=== PATIENT | female | born 2000 | race Caucasian/White ===

== ENCOUNTER → 2020-02-10 | Outpatient (REF) | payer OTHER | LOC: M LAB REF 19:21 | PROVIDERS: ATTEND Physician Assistant | DX: R22.41 Localized swelling, mass and lump, right lower limb (principal) ==

== ENCOUNTER → 2020-03-15 | Outpatient (REF) | payer OTHER | LOC: M LAB REF 17:05 | PROVIDERS: ATTEND Family Medicine | DX: R10.2 Pelvic and perineal pain (principal) ==

== ENCOUNTER → 2020-04-18 | Outpatient (CLI) | payer OTHER ==
--- NOTE | 2020-04-19 08:47 | REP ---
INDICATION: W/ INCONCLUSIVE VIABILITY COMPARISON: None. TECHNIQUE: Transabdominal obstetrical ultrasound with color Doppler evaluation. FINDINGS: Single live early intrauterine is appreciated. Gestational sac with yolk sac and pole identified. [place]-rump length of 22 mm corresponds to 8 weeks 6 days gestational age with estimated date of delivery 11/22/2020. heart rate equals 171 beats per minute. No gross abnormalities are identified. IMPRESSION: Single live early intrauterine at 8 weeks 6 days gestational age. Complete anatomical assessment should be performed and 19-20 weeks. <Electronically signed by Aryan Rosa > 04/19/20 [id number]
== END ==
LOC: M RAD 10:03
PROVIDERS: ATTEND Obstetrics & Gynecology
DX: O36.80X0 Pregnancy with inconclusive fetal viability, not applicable or unspecified (principal); Z3A.08 8 weeks gestation of pregnancy

== ENCOUNTER → 2020-05-29 | Outpatient (REF) | payer OTHER ==
[2020-05-31 16:08] LABS: HEMOGLOBIN A2 2.2 % (1.8-3.2); HEMOGLOBIN F (FETAL) 1.8 % (0.0-2.0); HGB SOLUBILITY Negative (Negative)
== END ==
LOC: M LAB REF 12:45
PROVIDERS: ATTEND Advanced Practice Midwife
DX: Z34.02 Encounter for supervision of normal first pregnancy, second trimester (principal)

== ENCOUNTER → 2020-07-11 | Outpatient (CLI) | payer OTHER ==
--- NOTE | 2020-07-11 13:19 | REP ---
INDICATION: ANATOMY COMPARISON: None. TECHNIQUE: Transabdominal obstetrical ultrasound with color Doppler evaluation. FINDINGS: Examination demonstrates a single live intrauterine in cephalic presentation. motion is identified by technologist. Placenta is noted anterior and grade 1 without evidence for placenta previa or abruption. Amniotic fluid volume is normal. Cervix measures 4.1 cm in length and appears closed.. Gestational age by LMP twenty weeks 6 days with KAILYN 11/22/2020. Gestational age by current measurements 21 weeks 3 days with KAILYN 11/18/2020. FHR equals 146 beats per minute. BPD: 5.3 cm 22 weeks 1 day HC: 19.1 cm 21 weeks 2 days AC: 15.7 cm 20 weeks 6 days FL: 3.7 cm 21 weeks 4 days HL: 3.3 cm 21 weeks 1 day HC/AC: 1.22 Estimated weight 409 grams (80thpercentile). Anatomical assessment demonstrates normal structures including choroid plexus, cavum, cerebellum/posterior fossa, facial features, lungs, four-chamber heart/ventricular outflow tracts, diaphragm, stomach, cord insertion/three-vessel cord, kidneys/bladder, spine, and extremities. IMPRESSION: 1. Single live intrauterine in cephalic presentation demonstrating appropriate interval growth. 2. Subtle irregular contour to the cranium may be secondary to positioning and crowding and less likely true congenital abnormality. Consider follow-up examination as necessary. Remainder of the anatomical assessment is complete and normal. <Electronically signed by Aryan Rosa > 07/11/20 [id number]
== END ==
LOC: M WHC 08:59
PROVIDERS: ATTEND Advanced Practice Midwife
DX: Z36.9 Encounter for antenatal screening, unspecified (principal); Z3A.21 21 weeks gestation of pregnancy

== ENCOUNTER → 2020-08-09 | Outpatient (CLI) | payer OTHER ==
[~2020-08-09] MED LIST: ACET-861 PO; NOXI1TAB PO; PRENTAB9 PO
--- NOTE | 2020-08-09 14:18 | REP ---
INDICATION: F/U ANATOMY COMPARISON: 07/11/2020 TECHNIQUE: Transabdominal obstetrical ultrasound with color Doppler evaluation. FINDINGS: Examination demonstrates a single live intrauterine in breech presentation. motion is identified by technologist. Placenta is noted anterior and grade 1 without evidence for placenta previa or abruption. Amniotic fluid volume is normal. Cervix measures 4.2 cm in length and appears closed.. Gestational age by EDC 24 weeks 5 days with KAILYN 11/24/2020. Gestational age by current measurements 25 weeks 6 days with KAILYN 11/16/2020. Gestational age by 1st ultrasound 25 weeks 0 days with KAILYN 11/22/2020 FHR equals 146 beats per minute. Estimated weight 824 grams. Cranium again has a mild "lemon shaped" appearance which is nonspecific. Mild renal pelviectasis is within normal limits for age. Asymmetric appearance to the lateral ventricles assumed to be positional. No further significant abnormalities are identified. IMPRESSION: Single live intrauterine in breech presentation. Consider follow-up ultrasound examination to the above-mentioned nonspecific findings. <Electronically signed by Aryan Rosa > 08/09/20 [id number]
== END ==
LOC: M WHC 11:00
PROVIDERS: ATTEND Advanced Practice Midwife
DX: Z36.9 Encounter for antenatal screening, unspecified (principal); Z3A.25 25 weeks gestation of pregnancy

== ENCOUNTER 2020-08-11 00:55 | Emergency (ER) | payer OTHER ==
[~2020-08-11] VITALS: Ht 157.5 cm; Wt 90.9 kg
[2020-08-11] MEDS ORDERED: ACET-861 PO (01:02)
[2020-08-11] MEDS ORDERED: PRENTAB9 PO (01:02)
[2020-08-11] MEDS ORDERED: NOXI1TAB PO (01:02)
[2020-08-11] MEDS ORDERED: GI COCKTAIL 50ML BTL(HYOSCYAMINE/MAALOX/LIDOCAINE VISCOUS)(1:3:1) PO ONE (01:30)
[2020-08-11] MEDS ORDERED: NS 1,000 ML IV ONE (01:30)
[2020-08-11] MEDS ORDERED: ACETAMINOPHEN TAB 650MG DOSE (2X325MG) PO ONE (01:30)
[2020-08-11 02:10] LABS: BASO # 0.1 10^3/uL (0.0-0.2); BASO % 0.6 % (0.0-1.0); EOS # 0.5 10^3/uL (0.0-0.5); EOS % 3.3 % (0.0-3.0); HEMATOCRIT 33.4 % (36.0-47.0); HEMOGLOBIN 11.2 g/dl (12.0-15.5); LYMPH # 2.3 10^3/uL (1.5-5.0); LYMPH % 16.2 % (24.0-44.0); MEAN CORPUSCULAR HEMOGLOBIN 28.9 pg (27.0-33.0); MEAN CORPUSCULAR HGB CONC 33.5 g/dl (32.0-36.5); MEAN CORPUSCULAR VOLUME 86.1 fl (80.0-96.0); MONO # 1.2 10^3/uL (0.0-0.8); MONO % 8.3 % (2.0-8.0); NEUTROPHILS # 9.9 10^3/uL (1.5-8.5); NEUTROPHILS % 69.4 % (36.0-66.0); PLATELET COUNT, AUTOMATED 204 10^3/uL (150-450); RED BLOOD COUNT 3.88 10^6/uL (4.00-5.40); WHITE BLOOD COUNT 14.3 10^3/uL (4.0-10.0)
[2020-08-11 02:48] LABS: ALBUMIN 2.9 GM/DL (3.2-5.2); ALT/SGPT 22 U/L (12-78); BILIRUBIN,DIRECT < 0.1 MG/DL (0.0-0.2); BLOOD UREA NITROGEN 8 MG/DL (7-18); CALCIUM LEVEL 8.9 MG/DL (8.5-10.1); CARBON DIOXIDE LEVEL 27 MEQ/L (21-32); CHLORIDE LEVEL 104 MEQ/L (98-107); CREATININE FOR GFR 0.54 MG/DL (0.55-1.30); GLOMERULAR FILTRATION RATE > 60.0 (>60); GLUCOSE, FASTING 84 MG/DL (70-100); MAGNESIUM LEVEL 1.5 MG/DL (1.8-2.4); POTASSIUM SERUM 3.5 MEQ/L (3.5-5.1); SODIUM LEVEL 137 MEQ/L (136-145); TOTAL PROTEIN 6.2 GM/DL (6.4-8.2); URIC ACID 3.4 MG/DL (2.6-6.0)
[2020-08-11 03:07] LABS: APPEARANCE, URINE CLEAR (CLEAR); BACTERIA, URINE AUTO 3+ (NEGATIVE); BILIRUBIN, URINE AUTO NEGATIVE (NEGATIVE); BLOOD, URINE BLOOD NEGATIVE (NEGATIVE); COLOR, URINE STRAW (YELLOW); GLUCOSE, URINE (UA) AUTO NEGATIVE (NEGATIVE); KETONE, URINE AUTO NEGATIVE (NEGATIVE); LEUKOCYTE ESTERASE, URINE AUTO NEGATIVE (NEGATIVE); NITRITE, URINE AUTO NEGATIVE (NEGATIVE); PROTEIN, URINE AUTO NEGATIVE (NEGATIVE); RBC, URINE AUTO 0 /HPF (0-3); SPECIFIC GRAVITY URINE AUTO 1.005 (1.002-1.035); SQUAMOUS EPITHELIAL CELL UR AU 1 /HPF (0-6); UROBILINOGEN, URINE AUTO 0.2 mg/dL (0.0-2.0); WBC, URINE AUTO 2 /HPF (0-3)
[2020-08-11 03:27] LABS: BILIRUBIN,TOTAL < 0.1 MG/DL (0.2-1.0)
[2020-08-11] MEDS ORDERED: MAGNESIUM OXIDE 400MG TAB (MAG-OX) PO ONE (04:00)
[2020-08-11 04:12] VITALS: BP 139/71
--- NOTE | 2020-08-11 06:18 | ECGEPIP ---
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
== END 2020-08-11 04:18 | disposition home or self-care (01) ==
LOC: M ED 00:55
DX: O99.412 Diseases of the circulatory system complicating pregnancy, second trimester (principal); R07.9 Chest pain, unspecified; O99.352 Diseases of the nervous system complicating pregnancy, second trimester; R51.9 Headache, unspecified; Z3A.25 25 weeks gestation of pregnancy

== ENCOUNTER → 2020-08-27 | Outpatient (CLI) | payer OTHER ==
[2020-08-27 12:02] LABS: HEMATOCRIT 35.2 % (36.0-47.0); HEMOGLOBIN 11.8 g/dl (12.0-15.5); MEAN CORPUSCULAR HEMOGLOBIN 29.5 pg (27.0-33.0); MEAN CORPUSCULAR HGB CONC 33.5 g/dl (32.0-36.5); PLATELET COUNT, AUTOMATED 210 10^3/uL (150-450); WHITE BLOOD COUNT 14.3 10^3/uL (4.0-10.0)
== END ==
LOC: M LAB 10:22
PROVIDERS: ATTEND Advanced Practice Midwife
DX: Z34.82 Encounter for supervision of other normal pregnancy, second trimester (principal); Z3A.00 Weeks of gestation of pregnancy not specified

== ENCOUNTER → 2020-10-02 | Outpatient (REF) | payer OTHER | LOC: M LAB REF 16:14 | PROVIDERS: ATTEND Advanced Practice Midwife | DX: Z36.89 Encounter for other specified antenatal screening (principal) ==

== ENCOUNTER 2020-10-27 16:49 | Emergency (ER) | payer OTHER ==
[~2020-10-27] VITALS: Ht 157.5 cm; Wt 102.3 kg
[2020-10-27 16:50] VITALS: BP 156/98
[2020-10-27] MEDS ORDERED: AUGM0.05 TOP (17:22)
[2020-10-27] MEDS ORDERED: NOXI1TAB PO (19:22)
[2020-10-27] MEDS ORDERED: MULTTAB20 PO (19:22)
[2020-10-28] MEDS ORDERED: PRED20TA PO (04:49)
== END 2020-10-27 17:42 | disposition home or self-care (01) ==
LOC: M ED 16:49
DX: O26.86 Pruritic urticarial papules and plaques of pregnancy (PUPPP) (principal); Z3A.36 36 weeks gestation of pregnancy

== ENCOUNTER 2020-10-27 19:09 | Outpatient (CLI) | payer OTHER ==
[~2020-10-27] VITALS: Ht 157.5 cm; Wt 104.5 kg
[~2020-10-27 19:09] MED LIST changes: +AUGM0.05 TOP
[2020-10-27] MEDS ORDERED: NOXI1TAB PO (19:22)
[2020-10-27] MEDS ORDERED: MULTTAB20 PO (19:22)
[2020-10-27 19:38] VITALS: BP 144/88
[2020-10-27 20:14] LABS: ALBUMIN 2.6 GM/DL (3.2-5.2); ALT/SGPT 17 U/L (12-78); BILIRUBIN,TOTAL 0.1 MG/DL (0.2-1.0); BLOOD UREA NITROGEN 7 MG/DL (7-18); CALCIUM LEVEL 8.4 MG/DL (8.5-10.1); CARBON DIOXIDE LEVEL 25 MEQ/L (21-32); CHLORIDE LEVEL 109 MEQ/L (98-107); CREATININE FOR GFR 0.53 MG/DL (0.55-1.30); GLOMERULAR FILTRATION RATE > 60.0 (>60); GLUCOSE, FASTING 91 MG/DL (70-100); POTASSIUM SERUM 3.8 MEQ/L (3.5-5.1); SODIUM LEVEL 140 MEQ/L (136-145); TOTAL PROTEIN 5.9 GM/DL (6.4-8.2)
[2020-10-27 20:19] VITALS: BP 139/92
[2020-10-27 20:21] VITALS: BP 142/94
[2020-10-27 20:35] VITALS: BP 144/84
[2020-10-27 21:17] LABS: CREATININE,RANDOM URINE 33.6 MG/DL; TOTAL PROTEIN,RANDOM URINE 5.9 MG/DL (0.0-12.0)
--- NOTE | 2020-10-27 21:41 | IPNPDOC ---
Text Note Date of Service The patient was seen on 10/27/20. NOTE 20 yo G1 at 36 0/7 weeks by early ultrasound (EDC=11/24/2020) presents with c/o an itchy rash all over her body. She does itch on her feet and hands the worst. She was seen in the ER today, and given betamethasone cream for PUPPPS rash. She is a patient of [facility]. O: YH=397/84 NAD maculopapular rash throughout trunk and extremities, no bullous changes Abd: NT, gravid FHT: cat I toco: none ext: tr edema PIH labs normal bile acids: pending A/P 20 yo G1 at 36 0/7 weeks with PUPPPS and new onset of mild hypertension Pt given betamethasone ointment in ER. Consider oral prednisone 40 mg daily for symptomatic relief follow BP closely; consider induction early due to elevated BP follow-up bile acid results VS,Fishbone, I+O VS, Fishbone, I+O Laboratory Tests 10/27/20 19:36 Vital Signs Date Time Temp Pulse Resp B/P (MAP) Pulse Ox O2 Delivery O2 Flow Rate FiO2 10/27/20 20:35 97 144/84 (104) 10/27/20 19:38 99.3 16 SON LUCERO MD October 27, 2020 21:41
[2020-10-28] MEDS ORDERED: PRED20TA PO (04:49)
== END 2020-10-27 21:40 | disposition home or self-care (01) ==
LOC: M LDO 19:09
PROVIDERS: ATTEND Specialist
DX: O26.86 Pruritic urticarial papules and plaques of pregnancy (PUPPP) (principal); Z3A.36 36 weeks gestation of pregnancy; O13.3 Gestational [pregnancy-induced] hypertension without significant proteinuria, third trimester
CPT/HCPCS: 36415; 59025; 80053; 82239; 82570; 84156; 99283; G0378; G0463

== ENCOUNTER 2020-10-29 21:29 | Outpatient (CLI) | payer OTHER ==
[~2020-10-29] VITALS: Ht 154.9 cm; Wt 104.0 kg
[~2020-10-29 21:29] MED LIST changes: +MULTTAB20 PO; +PRED20TA PO
[2020-10-29 21:45] VITALS: BP 181/109
[2020-10-29 21:48] VITALS: BP 143/97
[2020-10-29 22:03] VITALS: BP 136/88
[2020-10-29 22:29] LABS: CREATININE,RANDOM URINE 18.6 MG/DL; TOTAL PROTEIN,RANDOM URINE < 5.0 MG/DL (0.0-12.0)
[2020-10-29 22:32] VITALS: BP 141/83
[2020-10-29 22:33] LABS: HEMATOCRIT 35.7 % (36.0-47.0); HEMOGLOBIN 11.9 g/dl (12.0-15.5); MEAN CORPUSCULAR HEMOGLOBIN 28.6 pg (27.0-33.0); MEAN CORPUSCULAR HGB CONC 33.3 g/dl (32.0-36.5); MEAN CORPUSCULAR VOLUME 85.8 fl (80.0-96.0); PLATELET COUNT, AUTOMATED 173 10^3/uL (150-450); RED BLOOD COUNT 4.16 10^6/uL (4.00-5.40); WHITE BLOOD COUNT 12.4 10^3/uL (4.0-10.0)
[2020-10-29 22:46] VITALS: BP 147/84
--- NOTE | 2020-10-29 22:54 | IPNPDOC ---
Text Note Date of Service The patient was seen on 10/29/20. NOTE Subjective: Cristy is a 20-year-old female who is a at 36.2 weeks gestation with an KAILYN of 11/24/20. She receives care from [facility]. She presents today after having an episode of nausea while her was driving. She ate dinner out at [employer] and reported feeling off with some nausea and dizziness. Currently not experiencing this. She denies pre-eclamptic signs. She denies contractions, vaginal bleeding, or leaking of fluid. She repo rts active movement. States her PUPPS rash symptoms have gotten better since starting oral Prednisone. Medical Hx: non-contributory Surgical Hx: leg surgery Family Hx: mother with history of preeclampsia Social History: . Denies being a smoker. Denies drug use or alcohol use/abuse. Objective: VS and labs: see below FHR: 130, moderate variability, positive accelerations, no decelerations. [place]. Rarely a contraction General: Patient alert and oriented. Does not appear to be in any distress. Respiratory: Regular rate without use of accessory muscles Abdomen: gravid and non tender to palpation Extremities: lower: generalized edema. No pitting, no clonus Bedside ultrasound: cephalic presentation with MELISSA of 26.23 cm. Fetus active and moving during ultrasound. Assessment: IUP at 36.2 weeks gestation, GHTN, PUPPS, polyhydramnios Plan: Reviewed diagnosis of GHTN. She has an appointment on Thursday. Encouraged to keep. Bile acids still pending. Reviewed recommendation of IOL for 37 weeks pending no severe range blood pressures or symptoms. Extensive education done on symptoms to report on preeclampsia. Reviewed access to care, kick count, labor signs, term labor signs and danger signs to report. Discharged to home with . VS,Fishbone, I+O VS, Fishbone, I+O Laboratory Tests 10/29/20 22:17 Vital Signs Date Time Temp Pulse Resp B/P (MAP) Pulse Ox O2 Delivery O2 Flow Rate FiO2 10/29/20 22:03 88 136/88 (104) 10/29/20 21:45 97.8 20 Vital Signs Label Value Date Time Blood Pressure Assessment 141/83 (102) 10/29/20 2232 Source Automatic Cuff (NIBP) Blood Pressure Assessment 147/84 (105) 10/29/202245 Source Automatic Cuff (NIBP) Item Value Date Time Creatinine 0.56 MG/DL 10/29/202216 Glomerular Filtration Rate > 60.0 10/29/202216 Uric Acid 3.8 MG/DL 10/29/202216 Total Bilirubin 0.1 MG/DL L 10/29/202216 Aspartate Amino Transf (AST/SGOT) 12 U/L 10/29/202216 Alanine Aminotransferase (ALT/SGPT) 15 U/L 10/29/202216 Lactate Dehydrogenase 209 U/L 10/29/202216 Item Value Date Time Urine Random Creatinine 18.6 MG/DL 10/29/202212 Urine Random Total Protein < 5.0 MG/DL 10/29/202212 EMERY ESCOBAR CNM October 29, 2020 22:54
[2020-10-29 23:15] LABS: ALT/SGPT 15 U/L (12-78); BILIRUBIN,TOTAL 0.1 MG/DL (0.2-1.0); CREATININE FOR GFR 0.56 MG/DL (0.55-1.30); GLOMERULAR FILTRATION RATE > 60.0 (>60); LDH LACTATE DEHYDROGENASE 209 U/L (84-246); URIC ACID 3.8 MG/DL (2.6-6.0)
== END 2020-10-29 23:30 | disposition home or self-care (01) ==
LOC: M LDO 21:29
PROVIDERS: ATTEND Advanced Practice Midwife
DX: O13.3 Gestational [pregnancy-induced] hypertension without significant proteinuria, third trimester (principal); Z3A.36 36 weeks gestation of pregnancy
CPT/HCPCS: 36415; 59025; 76815; 82247; 82565; 82570; 83615; 84156; 84450; 84460; 84550; 85027; G0378; G0463

== ENCOUNTER → 2020-10-31 | Outpatient (REF) | payer OTHER | LOC: M LAB REF 12:05 | PROVIDERS: ATTEND Advanced Practice Midwife | DX: Z36.89 Encounter for other specified antenatal screening (principal) ==

== ENCOUNTER 2020-11-02 08:55 | Inpatient (IN) | payer OTHER ==
[~2020-11-02] VITALS: Ht 157.5 cm; Wt 103.7 kg
[2020-11-02] VITALS (46 sets, daily range): BP systolic 129–195; BP diastolic 64–129
[2020-11-02] MEDS ORDERED: TUMS750C5 PO (09:21)
[2020-11-02 09:47] LABS: HEMATOCRIT 38.1 % (36.0-47.0); HEMOGLOBIN 12.9 g/dl (12.0-15.5); MEAN CORPUSCULAR HEMOGLOBIN 28.7 pg (27.0-33.0); MEAN CORPUSCULAR HGB CONC 33.9 g/dl (32.0-36.5); MEAN CORPUSCULAR VOLUME 84.7 fl (80.0-96.0); PLATELET COUNT, AUTOMATED 209 10^3/uL (150-450); WHITE BLOOD COUNT 16.3 10^3/uL (4.0-10.0)
--- NOTE | 2020-11-02 09:55 | IPNPDOC ---
Text Note Date of Service The patient was seen on 11/02/20. NOTE Outpatient 20yo G1 @ 36w6d, patient of [facility]. Presents after reporting elevated pressures to Dr Alcantar overnight. Reports good movement. States she gets "stabbing" headache behind her eye and into her neck, accompanied by nausea, shaking and "feeling off" BP at [facility] last night 140's/90's. On home BP cuff ranged 140's-180's/90's-120 Initial BP's here 140/89, 141/95, 143/94. Pulse 95, 111, 96, 98, 189. Will evaluate closer with pulse ox for continuous evaluation. Labs pending. Will update Dr Alcantar with results. VS,Rafabone, I+O VS, Rafabone, I+O Laboratory Tests 11/02/20 09:36 Vital Signs Date Time Temp Pulse Resp B/P (MAP) Pulse Ox O2 Delivery O2 Flow Rate FiO2 11/02/20 09:26 97 Room Air 11/02/20 09:20 111 111 11/02/20 09:15 97.7 140/89 (106) Mariposa Aguilar CNM November 02, 2020 09:55
[2020-11-02 10:14] LABS: ALT/SGPT 14 U/L (12-78); BILIRUBIN,TOTAL 0.1 MG/DL (0.2-1.0); CREATININE FOR GFR 0.57 MG/DL (0.55-1.30); GLOMERULAR FILTRATION RATE > 60.0 (>60); LDH LACTATE DEHYDROGENASE 198 U/L (84-246); URIC ACID 4.3 MG/DL (2.6-6.0)
[2020-11-02 10:41] LABS: TOTAL PROTEIN,RANDOM URINE 5.5 MG/DL (0.0-12.0)
[2020-11-02] MEDS ORDERED: LACTATED RINGER'S 1000 ML IV STA (11:03)
[2020-11-02] MEDS ORDERED: OXYTOCIN DRIP 30 UNITS in IV 1 EA IV PRN (11:05)
[2020-11-02] MEDS ORDERED: LIDOCAINE 1% MDV 20ML VIAL INFIL PRN (11:05)
[2020-11-02] MEDS ORDERED: METHYLERGONOVINE MALEATE 0.2 MG/ML VIAL (J2210) IM PRN (11:05)
[2020-11-02] MEDS: miSOPROStol 50MCG 1/2 TABLET PO SCH ×3 (12:00→23:57)
--- NOTE | 2020-11-02 12:11 | HPEPDOC ---
Obstetrical History & Physical General Date of Admission November 02, 2020 at 10:55 History of Present Illness Chief Complaint: Gestational Hypertension, Induction of labor Information Provided By: Patient Age: 20 : 1 Term: 0 Pre-term: 0 Abortions: 0 Livin Care Care: Good Care Dating Final EDC: Nov 24, 2020 Final EDC by: 1st trimester (US) EGA at Admission: 36 (+6) Antepartum Course Pre- weight (lbs.): 194 Admission Weight (lbs.): 227 Past Medical History Past Obstetrical History : Past Obstetrical History: [facility] History: No pertinent history Past Medical History Surgical History: Other (leg) Family History Significant Family History: No pertinent family hx Social History Marital Status: Family situation: Spouse/partner home Psychosocial History: No pertinent psych hx * Smoker: non-smoker Alcohol: Denies Drugs: denies Allergies Coded Allergies: No Known Allergies (Unverified , 08/11/20) Medications Scheduled Prednisone (Prednisone) 20 Mg Tablet, 20 MG PO BID No122/Iron/Folic Acid ( Multi Tablet) 1 Each Tablet, 1 TAB PO DAILY Vitamin D3/Folic Acid (Noxifol-D3 2,500 Unit-1 mg Tab) 2,500 Unit Tablet, 1 TAB PO DAILY Scheduled PRN Calcium Carbonate (Tums) 300 Mg Tab.chew, 2 TABS PO Q6HP PRN for INDIGESTION Physical Examination Physical Examination GENERAL: Alert and oriented times three. BREAST: . ABDOMEN: Gravid and non-tender to touch. FETUS: Is vertex (VTX) by sterile vaginal examination (SVE), fetus is vertex (VTX) by Mj. EFW 7# HEART RATE: Regular rate and rhythm. LUNGS: Clear to auscultation (CTA). EXTREMITIES: No edema. No clonus. Deep tendon reflexes (DTRs) + 2. Vital Signs/I&O Vital Signs Date Time Temp Pulse Resp B/P (MAP) Pulse Ox O2 Delivery O2 Flow Rate FiO2 11/02/20 10:36 96 96 Room Air 11/02/20 10:16 136/91 (106) 11/02/20 09:46 20 11/02/20 09:15 97.7 Laboratory Data 24H LABS Laboratory Tests 2 11/02/20 09:36: Nucleated Red Blood Cells % (auto) 0.0, Glomerular Filtration Rate > 60.0, Uric Acid 4.3, Total Bilirubin 0.1L, Aspartate Amino Transf (AST/SGOT) 13, Alanine Aminotransferase (ALT/SGPT) 14, Lactate Dehydrogenase 198 11/02/20 09:41: Urine Random Creatinine 17.0, Urine Random Total Protein 5.5 11/02/20 11:10: Serology Scanned Report Hepatitis B Testing CBC/BMP Laboratory Tests 11/02/20 09:36 Pertinent Laboratoy Data Blood Type: O+ RBC Antibody Screen: Negative HIV: Negative Hepatitis B: Negative Hepatitis C: Negative Rapid Plasma Reagin: Nonreactive Rubella: Immune Chlamydia/Gonorrhea: Negative Group B Streptococcus: Negative Glucose Tolerance Test: 121 Anatomy Ultrasound Ultrasound Date: Jul 11, 2020 Placenta Location: Anterior Normal Anatomy: No (subtle irregularity to cranium) Placenta Previa: No Estimated Weight (grams): 409 (80%) Other Ultrasounds 03/27/2020 5w3d, no pole 04/18/2020 8w6d, KAILYN 11/22/2020 10/17/2020 Vertex, MELISSA 24.0, upper normal. EFW 2884gm, 73%. cranium appears abnormally shaped. Steroid Therapy Steroid Therapy: No Vaginal Examination Dilation: Fingertip Effacement: 30% Station: -3 Cervical Consistency: Medium Cervical Position: Posterior Presentation: Cephalic presentation Assessment Heart Rate (FHR): 135 Variability: Increased Accelerations: Positive Decelerations: None Tocometer Contractions: Yes (rare) Strength: palpated as mild Assessment/Plan Assessment Cristy is a 20-year-old (G)1 para (P)0-0-0-0 at 36+6 weeks by 8-week ultrasound. Patient of [facility], has had appropriate care. Presents to Labor and Delivery (L&D) per consult Dr Alcantar for induction of labor due to labile gestational hypertension with headache. Pressures at home have been int ermittently elevated with max 180/120. Mild elevations noted here, 130's- 140's/90's. Preeclampsia labs WNL, essentially unchanged from 4 days ago. Urine ratio today 0.32, was 0.27. Denies LOF, bleeding or regular UC. Reports good movement. Plan Admit and orient per consult Dr Alcantar. 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 Diet: Regular. Group B Streptococcus (GBS) negative. Labs and intravenous (IV) per unit protocol. Counseled on misoprostol, Pitocin and induction of labor (IOL). Lactated Ringers (LR): Bolus 500 mL, then saline lock. Plans to labor ad kel. Anticipate normal spontaneous delivery (). C-S as appropriate. Mariposa Aguilar CNM November 02, 2020 12:10
[2020-11-02] MEDS ORDERED: LABETALOL 100MG/20ML VIAL IV STA ×2 (12:58→13:54)
[2020-11-03] VITALS (48 sets, daily range): BP systolic 127–170; BP diastolic 63–99
[2020-11-03] MEDS ORDERED: OXYTOCIN DRIP 30 UNITS in IV 1 EA IV SCH (08:15)
--- NOTE | 2020-11-03 08:17 | IPNPDOC ---
Text Note Date of Service The patient was seen on 11/03/20. NOTE Progress Blood pressures have continued to be labile, no add'l IV meds have been required Cat I tracing, Irregular UC Comfortable at present SVE /-2 Cooks catheter placed, inflated with 60/40cc NS Start pitocin after breakfast. VS,Fishbone, I+O VS, Fishbone, I+O Laboratory Tests 11/02/20 09:36 Vital Signs Date Time Temp Pulse Resp B/P (MAP) Pulse Ox O2 Delivery O2 Flow Rate FiO2 11/03/20 07:30 97.7 11/03/20 07:23 74 18 134/93 (107) 11/02/20 17:28 97 Room Air I&O- Last 24 Hours up to 6 AM 11/03/20 05:59 Intake Total 1380 ml Output Total 2400 ml Balance -1020 ml Mariposa Aguilar CNM November 03, 2020 08:17
[2020-11-03] MEDS: LR 1,000 ML IV SCH ×2 (09:03→16:37)
--- NOTE | 2020-11-03 17:22 | IPNPDOC ---
Obstetrical Progress Note Date of Service November 03, 2020 Subjective Patient is starting to feel uncomfortable with contractions. Status post AROM. Clear fluid since. Contractions are intensifying in pain. Objective Vital Signs Date Time Temp Pulse Resp B/P (MAP) Pulse Ox O2 Delivery O2 Flow Rate FiO2 11/03/20 07:30 97.7 11/03/20 07:23 74 18 134/93 (107) 11/02/20 17:28 97 Room Air Assessment Heart Rate Tracing: Category I Tocometer Contractions: Yes Sterile Vaginal Examination Dilation: 6 cm Effacement (%): 80% Station: -2 Cervical Consistency: Soft Cervical Position: Middle Postion/Presentation: Cephalic presentation Assessment and Plan Status: Reassuring Anticipate: Vaginal Delivery Additional Comments Continue IOL/active management. status reassuring with administration of Pitocin. Plan is to continue. I'll place an IUPC if unchanged over the next 3- 4 hours. No e/o IAI. Patient coping well with her pain; declines any pain medication at this time. ALCIDES BALBUENA DO November 03, 2020 17:21
[2020-11-03] MEDS ORDERED: PROMETHAZINE INJ 25 MG/ML VIAL (J2550) IV ONE (17:50)
[2020-11-03] MEDS ORDERED: BUTORPHANOL 2 MG/ML INJ (J0595) IV ONE (17:50)
--- NOTE | 2020-11-03 20:28 | IPNPDOC ---
Obstetrical Progress Note Date of Service November 03, 2020 Subjective Patient has received IV Stadol and Phenergan for pain control. These medications have provided adequate relief. She has been resting well. No complaint of heavy VB. Denies ANTONIO, visual changes, RUQ pain, sob, cp. Objective Vital Signs Date Time Temp Pulse Resp B/P (MAP) Pulse Ox O2 Delivery O2 Flow Rate FiO2 11/03/20 19:41 16 11/03/20 19:20 79 149/92 (111) 11/03/20 07:30 97.7 11/02/20 17:28 97 Room Air Assessment Heart Rate Tracing: Category I Tocometer Contractions: Yes Frequency: every 2-5 min. (IUPC inserted) Sterile Vaginal Examination Dilation: 6 cm Effacement (%): 80% Station: -2 (unchanged) Cervical Consistency: Soft Cervical Position: Middle Postion/Presentation: Cephalic presentation Assessment and Plan Status: Reassuring Anticipate: Vaginal Delivery Additional Comments Continue Pitocin. Discussed with patient my concern for protracted labor c ourse. No e/o IAI. Reassuring status. DO ESHA Burnett JONATHAN R. DO November 03, 2020 20:28
[2020-11-03] MEDS ORDERED: FENTANYL 2MCG/ML ROPIVACAINE 0.2% IN 0.9% NACL 100ML IVBAG As Ordered ONE (21:44)
[2020-11-03] MEDS ORDERED: LACTATED RINGER'S 1000 ML IV PRN (22:02)
[2020-11-03] MEDS ORDERED: ONDANSETRON 4MG/2ML VIAL IV PRN (22:02)
[2020-11-03] MEDS ORDERED: NALOXONE INJ 0.4MG/1ML VIAL (J2310 PER 1MG) IV PRN (22:02)
[2020-11-03] MEDS ORDERED: EPIDURAL/PCA KEYS XX PRN (22:02)
[2020-11-03] MEDS ORDERED: FENTANYL/ROPIVACAINE/NACL BAG 100 ML EPIDURAL SCH (22:02)
[2020-11-03] MEDS ORDERED: diphenhydrAMINE 50MG/ML VIAL (J1200) IV PRN (22:02)
[2020-11-03] MEDS ORDERED: EPIDURAL COMMENT XX SCH (22:02)
[2020-11-03] MEDS ORDERED: REFRIGERATOR IV KEYS XX PRN (22:02)
[2020-11-03] MEDS ORDERED: ePHEDrine SULFATE 25 MG/5 ML(5MG/ML) SYRINGE IV PRN (22:02)
[2020-11-04] VITALS (28 sets, daily range): BP systolic 117–171; BP diastolic 53–100
--- NOTE | 2020-11-04 01:12 | IPNPDOC ---
Obstetrical Progress Note Date of Service November 04, 2020 Subjective Patient now has an epidural and she is very comfortable. Reports a small amount of bloody show. Also, she is feeling rectovaginal pressure intermittently. Objective Vital Signs Date Time Temp Pulse Resp B/P (MAP) Pulse Ox O2 Delivery O2 Flow Rate FiO2 11/03/20 23:53 98.6 106 139/65 (89) 11/03/20 19:41 16 11/02/20 17:28 97 Room Air Assessment Heart Rate Tracing: Category I Tocometer Contractions: Yes Frequency: every 2-5 min. Sterile Vaginal Examination Dilation: 9 cm Effacement (%): 100% Station: 0 Cervical Consistency: Soft Cervical Position: Anterior Postion/Presentation: Cephalic presentation Assessment and Plan Status: Reassuring Anticipate: Vaginal Delivery Additional Comments Approaching second stage of labor. Excellent progression since last SVE. Reassuring maternal and status. Continue ALCIDES Saez DO November 04, 2020 01:12
[2020-11-04] MEDS ORDERED: OXYTOCIN DRIP 30 UNITS in IV 1 EA IV SCH (06:30)
[2020-11-04] MEDS ORDERED: ONDANSETRON 4MG/2ML VIAL IV PRN (06:30)
[2020-11-04] MEDS ORDERED: IBUPROFEN 600MG TAB PO PRN (06:30)
[2020-11-04] MEDS ORDERED: LR 1,000 ML IV SCH (06:30)
[2020-11-04] MEDS ORDERED: MEASLES,MUMPS,RUBELLA VACCINE INJ (MMR-II) (90707) SC SCH (06:30)
[2020-11-04] MEDS ORDERED: ACETAMINOPHEN 500 MG TAB PO PRN (06:30)
[2020-11-04] MEDS ORDERED: RHOGAM 300 MCG (1500 IU) INJ (J2790) IM SCH (06:30)
[2020-11-04] MEDS ORDERED: DIBUCAINE 1% OINTMENT 30GM TOP PRN (06:30)
[2020-11-04] MEDS ORDERED: ACETAMINOPHEN TAB 650MG DOSE (2X325MG) PO PRN (06:30)
[2020-11-04] MEDS ORDERED: DOCUSATE SODIUM 100MG CAPSULE PO PRN (06:30)
--- NOTE | 2020-11-04 06:37 | DNPDOC ---
[facility] Delivery Note Delivery Note DATE OF DELIVERY: 11/04/20 TIME OF DELIVERY: 0608 Spontaneous vaginal delivery. MERCHANDISING REPRESENTATIVE: Dr. Rob Dorsey DO FACOG ANESTHESIA: epidural LACERATION: Second degree perineal ESTIMATED BLOOD LOSS: 200 mL. FINDINGS: 7 pound 5 ounce (3310g) Female named Crystal, Score 8 and 9. DELIVERY SUMMARY: The active phase and second stage of labor progressed in normal fashion.. She received Pitocin augmentation throughout her labor course. The head delivered in the RAVI position, and restituted LOT. A loose nuchal cord was noted and easily reduced. The anterior shoulder delivered with gentle downward guidance and the remainder of the body delivered with ease. The baby was placed on the patient's chest. Delayed cord clamping occurred for approximately 1 minute. The cord was then doubly clamped and cut. IV Pitocin was bolused to actively manage the third stage of labor. The placenta delivered intact without any difficulty within 10 minutes of delivery. The uterine fundus was noted to be firm and 2 cm below the umbilicus. The cervix, vagina, vulva and perineum were inspected. A second-degree laceration was noted and immediately repaired with 3-0 Vicryl in typical fashion. Excellent hemostasis was noted. Sponge, needle and instrument counts were correct per protocol. DO PRAVEENA Lezama JONATHAN R. DO November 04, 2020 06:37
[2020-11-04] MEDS ORDERED: LABETALOL 100MG/20ML VIAL IV STA (07:21)
[2020-11-04] MEDS: IBUPROFEN 800 MG TAB PO PRN ×2 (07:43→17:40)
[2020-11-04] MEDS: PRENATAL VITAMINS CHEWABLE TABLET PO SCH (09:14)
[2020-11-05 01:57] VITALS: BP 139/90
[2020-11-05 06:11] VITALS: BP 130/51
[2020-11-05] MEDS: IBUPROFEN 800 MG TAB PO PRN ×3 (06:44→22:54)
--- NOTE | 2020-11-05 08:11 | IPNPDOC ---
Progress Note Date of Service: November 05, 2020 Day#: 1 Progress Note SUBJECT: Status post . She has been ambulating, voiding spontaneously without issue and tolerating regular diet. Lochia decreasing/minimal. Pain is well-controlled. Denies headache, visual changes, right upper quadrant pain, shortness breath or chest pain. OBJECTIVE: VITAL SIGNS: Within normal limits, afebrile. Alert and oriented times three. Abdomen: Fundus firm at U-2. Soft, NTTP. ASSESSMENT: Status post uncomplicated spontaneous vaginal delivery. Vitals within normal limits, afebrile, hemodynamically stable with no evidence of infection. PLAN: Discharge to home tomorrow Tylenol and Motrin for pain. Routine instructions/precautions reviewed. Routine PP visit in 6 weeks in clinic. VS, I&O, 24H, Fishbone Vital Signs/I&O Vital Signs Date Time Temp Pulse Resp B/P (MAP) Pulse Ox O2 Delivery O2 Flow Rate FiO2 11/05/20 06:11 97.7 78 16 130/51 (77) 98 Room Air I&O- Last 24 Hours up to 6 AM 11/05/20 05:59 Intake Total 5144 ml Output Total 1800 ml Balance 3344 ml ALCIDES BALBUENA DO November 05, 2020 08:11
[2020-11-05] MEDS: PRENATAL VITAMINS CHEWABLE TABLET PO SCH (08:25)
[2020-11-05 10:10] VITALS: BP 136/75
[2020-11-05] MEDS ORDERED: BOOSTRIX/ADACEL VACCINE (DIPHTH/PERTUSS/ACELL/TETANUS) 0.5ML SYR IM ONE (10:30)
[2020-11-05 14:00] VITALS: BP 131/69
[2020-11-05 18:00] VITALS: BP 159/95
[2020-11-05 22:30] VITALS: BP 145/84
[2020-11-06 02:30] VITALS: BP 148/93
[2020-11-06 06:00] VITALS: BP 132/72
[2020-11-06] MEDS: PRENATAL VITAMINS CHEWABLE TABLET PO SCH (08:09)
[2020-11-06] MEDS: IBUPROFEN 800 MG TAB PO PRN (08:58)
[2020-11-06] MEDS ORDERED: NEOSPORIN TOP OINT 15GM TOP SCH (09:00)
[2020-11-06] MEDS ORDERED: IBUP80TA PO (09:07)
[2020-11-06] MEDS ORDERED: TRIPOIN5 TOP (09:07)
[2020-11-06 10:00] VITALS: BP 141/93
== END 2020-11-06 13:30 | disposition home or self-care (01) | DRG 807 ==
LOC: M LDO 08:55 → M LDI 10:55 → M OBS 11-04 08:50
PROVIDERS: ADMIT Advanced Practice Midwife; ATTEND Obstetrics & Gynecology
PROC: 3E0P7GC Introduction of Other Therapeutic Substance into Female Reproductive, Via Natural or Artificial Opening (ICD-10-PCS; 2020-11-02)
PROC: 0KQM0ZZ Repair Perineum Muscle, Open Approach (ICD-10-PCS; 2020-11-03)
PROC: 10907ZC Drainage of Amniotic Fluid, Therapeutic from Products of Conception, Via Natural or Artificial Opening (ICD-10-PCS; 2020-11-03)
PROC: 10E0XZZ Delivery of Products of Conception, External Approach (ICD-10-PCS; principal; 2020-11-04)
DX: O13.4 Gestational [pregnancy-induced] hypertension without significant proteinuria, complicating childbirth (principal); Z37.0 Single live birth; Z3A.36 36 weeks gestation of pregnancy; O70.1 Second degree perineal laceration during delivery; O69.81X0 Labor and delivery complicated by cord around neck, without compression, not applicable or unspecified

== ENCOUNTER → 2021-01-15 | Outpatient (REF) | payer OTHER ==
[~2021-01-15] MED LIST changes: +IBUP80TA PO; +NEOM28OI TOP; +TUMS750C5 PO
== END ==
LOC: M LAB REF 16:46
PROVIDERS: ATTEND Family Medicine
DX: N76.0 Acute vaginitis (principal)